=== PATIENT | female | born 1995 | race Caucasian/White ===

== ENCOUNTER 2017-01-18 20:41 | Emergency (ER) | payer OTHER ==
[~2017-01-18] VITALS: Ht 170.2 cm; Wt 57.0 kg
[2017-01-18 21:24] VITALS: BP 132/84
== END 2017-01-18 21:26 | disposition home or self-care (01) ==
LOC: EMS 20:42
DX: N39.0 Urinary tract infection, site not specified (principal)
CPT/HCPCS: 81025; 99283